=== PATIENT | female | born 1950 | race Caucasian/White ===

== ENCOUNTER 2017-05-13 20:10 | Inpatient (IN) | payer OTHER ==
[~2017-05-13] VITALS: Ht 154.9 cm; Wt 74.2 kg
[~2017-05-13 20:10] MED LIST: ADULT LOW DOSE81 M1 PO; ALEVE220 MG PO; AMOXICILLIN500 MG PO; ASPIR 8181 MG PO; ASPIR-LOW81 MG PO; CHEWABLE MULTI1 EACH PO; CLONIDINE HCL0.1 MG PO; COMBIVENT RESPIM4 GM IH; DAILY VITAMIN1 EAC8 PO; FLUOXETINE HCL20 M1 PO; GLUCOPHAGE500 MG PO; GLUMETZA500 M1 PO; LEVAQUIN500 MG PO; LEVOTHROID25 MCG PO; LEVOTHYROXINE75 MCG PO; LIPITOR20 MG PO; MULTIVITAMIN W1 EAC3 PO; PREDNISONE10 M1 PO; PREDNISONE10 MG PO; PREDNISONE20 MG PO; PREVACID SOLUTA30 MG PO; PRILOSEC40 MG PO; PRINIVIL10 MG PO; PROZAC20 MG PO; SPIRIVA1 INHALATI IH; SYMBICORT60 INHALA1 IH; SYNTHROID25 MCG PO; SYNTHROID75 MCG PO; VENTOLIN HFA18 GM IH; VITAMIN B-12500 MC3 PO; ZETIA10 MG PO; ZOCOR40 MG PO
[2017-05-13 20:58] LABS: HEMATOCRIT 48.8 % (36.0-46.0); MCH 28.6 PG (29.0-34.0); MCHC 31.4 G/DL (30.0-36.0); MCV 91.2 FL (83-99); MEAN PLAT.VOLUME 9.2 uM^3 (9.5-12.4); PLATELET COUNT 318 K/uL (156-360); RBC DIS.WIDTH-CV 14.4 % (11.8-14.6); RBC DIS.WIDTH-SD 47.8 % (39-53); RED BLOOD COUNT 5.35 M/uL (3.80-5.20); WHITE BLOOD COUNT 23.4 K/uL (4.1-10.2)
[2017-05-13 21:08] LABS: CHLORIDE 106 mEq/L (99-109); POTASSIUM 4.6 mEq/L (3.7-5.4); SODIUM 143 mEq/L (136-147)
[2017-05-13 21:10] LABS: GLUCOSE 99 mg/dL (70-99)
[2017-05-13 21:12] LABS: ANION GAP 13 MEQ/L (2-14)
[2017-05-13 21:14] LABS: GFR ESTIMATE (CALCULATED) > 59 mL/min/
[2017-05-13 21:15] LABS: UREA NITROGEN (BUN) 16 mg/dL (9-23)
[2017-05-13 21:23] LABS: TROP-I INTERPRETATION NEGATIVE; TROPONIN-I 0.03 ng/mL (0.0-0.30)
[2017-05-13] MEDS ORDERED: DULERA 100 MCG/13 GM PO (21:33)
[2017-05-13] MEDS ORDERED: BAYER CHEWABLE81 MG PO (21:35)
[2017-05-13] MEDS ORDERED: DULERA 100 MCG/13 GM IH (21:43)
[2017-05-13] MEDS ORDERED: METFORMIN HCL500 M1 PO (21:43)
[2017-05-13] MEDS ORDERED: OMEPRAZOLE40 M1 PO (22:04)
[2017-05-13] MEDS ORDERED: PREDNISONE10 MG PO (22:05)
[2017-05-13] MEDS ORDERED: DAILY VITAMIN1 EAC4 PO (22:06)
[2017-05-13] MEDS ORDERED: BROVANA15 MCG/2 M IH (22:09)
[2017-05-14] VITALS (7 sets, daily range): BP systolic 140–188; BP diastolic 71–87
[2017-05-14 00:06] LABS: HDL CHOLESTEROL 63 MG/DL (Desirable>=50); LDL CHOLESTEROL 74 mg/dL (Desirable<100); NON-HDL CHOLESTEROL 114 mg/dL (Desirable<160); TOTAL CHOLESTEROL 177 mg/dL (Desirable<200); TRIGLYCERIDES 198 MG/DL (Normal: <150)
[2017-05-14 06:05] LABS: EOSINOPHIL (%) 0 % (0-5); IMMATURE GRANULOCYTE (%) 0.9 % (0.0-0.7); IMMATURE GRANULOCYTE COUNT 0.2 K/uL; LYMPHOCYTE COUNT 1.3 K/uL (1.0-2.8); MCH 28.3 PG (29.0-34.0); MCHC 31.1 G/DL (30.0-36.0); MCV 91.1 FL (83-99); MEAN PLAT.VOLUME 9.4 uM^3 (9.5-12.4); MONOCYTE (%) 1.7 % (3-12); MONOCYTE COUNT 0.3 K/uL (0-0.8); NEUTROPHIL (%) 90.5 % (45-76); PLATELET COUNT 305 K/uL (156-360); RBC DIS.WIDTH-CV 14.5 % (11.8-14.6); RBC DIS.WIDTH-SD 48.3 % (39-53); RED BLOOD COUNT 5.16 M/uL (3.80-5.20); WHITE BLOOD COUNT 19.9 K/uL (4.1-10.2)
[2017-05-14 06:22] LABS: ANION GAP 10 MEQ/L (2-14); CHLORIDE 104 MEQ/L (99-109); GFR ESTIMATE (CALCULATED) > 59 mL/min/; POTASSIUM 4.5 MEQ/L (3.7-5.4); SAMPLE HEMOLYSIS CHECK 0; SAMPLE ICTERIC CHECK 0; SAMPLE LIPEMIA CHECK 0; SODIUM 139 MEQ/L (136-147); UREA NITROGEN (BUN) 13 mg/dL (9-23)
[2017-05-14 06:25] LABS: GLUCOSE 154 mg/dL (70-99)
[2017-05-14 07:43] LABS: Estimated Average Glucose 137 mg/dL (70-123); HEMOGLOBIN A1c (GLYCOHEMOGLOB) 6.4 % HGB (Below 5.7)
[2017-05-14 17:24] LABS: POINT-OF-CARE METER ID UU14188625
[2017-05-14 21:14] LABS: POINT-OF-CARE METER ID UU13113717
[2017-05-14 21:50] LABS: ADD MIUA? NO; BILIRUBIN NEGATIVE; BLOOD NEGATIVE; COLOR YELLOW ((YELLOW)); GLUCOSE (STRIP) NEGATIVE; KETONES NEGATIVE; LEUKOCYTES NEGATIVE; NITRITE NEGATIVE; PROTEIN (STRIP) NEGATIVE; SPECIFIC GRAVITY 1.009 (1.000-1.030); UCUL ADDED? NO; UROBILINOGEN 0.2 MG/DL (0.2-1.0)
[2017-05-15 04:10] VITALS: BP 188/80
[2017-05-15 05:53] LABS: EOSINOPHIL (%) 0 % (0-5); HEMATOCRIT 47.7 % (36.0-46.0); IMMATURE GRANULOCYTE (%) 0.7 % (0.0-0.7); IMMATURE GRANULOCYTE COUNT 0.1 K/uL; INSTRUMENT ABS NEUTROPHIL CT 17.9 K/uL; MCH 29.4 PG (29.0-34.0); MCHC 32.3 G/DL (30.0-36.0); MEAN PLAT.VOLUME 9.5 uM^3 (9.5-12.4); MONOCYTE (%) 0.8 % (3-12); MONOCYTE COUNT 0.2 K/uL (0-0.8); NEUTROPHIL (%) 92.9 % (45-76); NEUTROPHIL COUNT 17.9 K/uL (1.8-6.4); PLATELET COUNT 306 K/uL (156-360); RBC DIS.WIDTH-CV 14.8 % (11.8-14.6); RBC DIS.WIDTH-SD 48.9 % (39-53); RED BLOOD COUNT 5.24 M/uL (3.80-5.20); WHITE BLOOD COUNT 19.3 K/uL (4.1-10.2)
[2017-05-15 06:55] LABS: ANION GAP 8 MEQ/L (2-14); CHLORIDE 103 MEQ/L (99-109); GFR ESTIMATE (CALCULATED) > 59 mL/min/; GLUCOSE 150 mg/dL (70-99); POTASSIUM 4.6 MEQ/L (3.7-5.4); SAMPLE HEMOLYSIS CHECK 0; SAMPLE ICTERIC CHECK 0; SAMPLE LIPEMIA CHECK 0; SODIUM 139 MEQ/L (136-147); UREA NITROGEN (BUN) 16 mg/dL (9-23)
[2017-05-15 07:48] LABS: POINT-OF-CARE METER ID UU14188625
[2017-05-15 08:19] VITALS: BP 164/79
[2017-05-15 12:01] VITALS: BP 146/99
[2017-05-15 12:01] LABS: POINT-OF-CARE METER ID UU14188625
[2017-05-15 17:03] LABS: POINT-OF-CARE METER ID UU14188625
[2017-05-15 18:04] VITALS: BP 162/64
[2017-05-15] MEDS ORDERED: CLOPIDOGREL75 MG PO (20:14)
[2017-05-15] MEDS ORDERED: METOPROLOL SUCC50 MG PO (20:15)
[2017-05-15] MEDS ORDERED: PRINIVIL10 MG PO (20:15)
[2017-05-15] MEDS ORDERED: LEXAPRO10 MG PO (20:18)
[2017-05-15 21:11] LABS: POINT-OF-CARE METER ID UU14174225
[2017-05-15 23:42] VITALS: BP 162/74; BP 185/82
[2017-05-16 07:35] VITALS: BP 162/76
[2017-05-16 07:38] LABS: POINT-OF-CARE METER ID UU13113717
[2017-05-16 11:36] LABS: POINT-OF-CARE METER ID UU13113717
[2017-05-16 15:59] VITALS: BP 159/68
[2017-05-16 17:10] LABS: POINT-OF-CARE METER ID UU13113717
== END 2017-05-16 21:00 | disposition home or self-care (01) | DRG 65 ==
LOC: EME 20:10 → 5SOUTH 22:35 → EDOF 22:35 → 5SOUTH 23:43
PROVIDERS: Emergency Medicine; Family Medicine Sports Medicine
DX: I63.9 Cerebral infarction, unspecified (principal); H53.9 Unspecified visual disturbance; J44.0 Chronic obstructive pulmonary disease with (acute) lower respiratory infection; J20.9 Acute bronchitis, unspecified; J44.1 Chronic obstructive pulmonary disease with (acute) exacerbation; E03.9 Hypothyroidism, unspecified; E11.9 Type 2 diabetes mellitus without complications; E78.5 Hyperlipidemia, unspecified; I10 Essential (primary) hypertension; I25.10 Atherosclerotic heart disease of native coronary artery without angina pectoris; J84.10 Pulmonary fibrosis, unspecified; K21.9 Gastro-esophageal reflux disease without esophagitis; F32.9 Major depressive disorder, single episode, unspecified; F41.9 Anxiety disorder, unspecified; E66.9 Obesity, unspecified; Z86.73 Personal history of transient ischemic attack (TIA), and cerebral infarction without residual deficits; Z68.30 Body mass index [BMI] 30.0-30.9, adult; Z87.891 Personal history of nicotine dependence; Z99.81 Dependence on supplemental oxygen; Z79.82 Long term (current) use of aspirin
CPT/HCPCS: 70450; 70553; 71010; 78582; 80048; 80061; 81003; 82948; 83036; 84443; 84484; 85025; 85027; 93005; 93306; 93880; 93970; 94640; 94640 76; 94760; 94799; 99202; A9540; A9567; J0360; J1200; J1650; J2765; J2930; J7030; J7512

== ENCOUNTER 2017-05-17 12:48 | Emergency (ER) | payer OTHER ==
[~2017-05-17] VITALS: Ht 154.9 cm; Wt 71.8 kg
[~2017-05-17 12:48] MED LIST changes: +BAYER CHEWABLE81 MG PO; +BROVANA15 MCG/2 M IH; +CLOPIDOGREL75 MG PO; +DAILY VITAMIN1 EAC4 PO; +DULERA 100 MCG/13 GM IH; +DULERA 100 MCG/13 GM PO; +LEXAPRO10 MG PO; +METFORMIN HCL500 M1 PO; +METOPROLOL SUCC50 MG PO; +OMEPRAZOLE40 M1 PO
[2017-05-17 13:11] LABS: HEMATOCRIT 49.8 % (36.0-46.0); MCHC 31.7 G/DL (30.0-36.0); MCV 91.4 FL (83-99); MEAN PLAT.VOLUME 9.4 uM^3 (9.5-12.4); PLATELET COUNT 294 K/uL (156-360); RBC DIS.WIDTH-CV 14.6 % (11.8-14.6); RBC DIS.WIDTH-SD 48.1 % (39-53); RED BLOOD COUNT 5.45 M/uL (3.80-5.20); WHITE BLOOD COUNT 26.1 K/uL (4.1-10.2)
[2017-05-17 13:16] LABS: INTER. NORMALIZED RATIO 1.1; PROTHROMBIN TIME 11.9 SEC (10.2-12.9)
[2017-05-17 13:19] LABS: CHLORIDE 101 mEq/L (99-109); POTASSIUM 3.8 mEq/L (3.7-5.4); PTT 25.7 SEC (25-37); SODIUM 142 mEq/L (136-147)
[2017-05-17 13:22] LABS: ANION GAP 15 MEQ/L (2-14)
[2017-05-17 13:24] LABS: GFR ESTIMATE (CALCULATED) > 59 mL/min/
[2017-05-17 13:25] LABS: UREA NITROGEN (BUN) 23 mg/dL (9-23)
[2017-05-17 13:31] LABS: TROP-I INTERPRETATION NEGATIVE; TROPONIN-I 0.01 ng/mL (0.0-0.30)
[2017-05-17 13:32] LABS: GLUCOSE 101 mg/dL (70-99)
[2017-05-17 15:08] VITALS: BP 132/67
== END 2017-05-17 15:12 | disposition home or self-care (01) ==
LOC: EME 12:48
PROVIDERS: Physician Assistant
DX: R51 Headache (principal); V49.40XA Driver injured in collision with unspecified motor vehicles in traffic accident, initial encounter; Z86.73 Personal history of transient ischemic attack (TIA), and cerebral infarction without residual deficits; K21.9 Gastro-esophageal reflux disease without esophagitis; I10 Essential (primary) hypertension; J45.909 Unspecified asthma, uncomplicated; E11.9 Type 2 diabetes mellitus without complications; Z87.891 Personal history of nicotine dependence; Z79.82 Long term (current) use of aspirin; Z79.84 Long term (current) use of oral hypoglycemic drugs
CPT/HCPCS: 70450; 71020; 80048; 84484; 85027; 85610; 85730; 93005; 99281; 99284; J1100

== ENCOUNTER 2017-06-25 17:31 | Inpatient (IN) | payer OTHER ==
[~2017-06-25] VITALS: Ht 165.1 cm; Wt 77.0 kg
[2017-06-25 18:14] LABS: HEMATOCRIT 44.8 % (36.0-46.0); MCH 29.7 PG (29.0-34.0); MCHC 32.6 G/DL (30.0-36.0); MCV 91.1 FL (83-99); MEAN PLAT.VOLUME 9.8 uM^3 (9.5-12.4); PLATELET COUNT 274 K/uL (156-360); RBC DIS.WIDTH-SD 49.6 % (39-53); RED BLOOD COUNT 4.92 M/uL (3.80-5.20); WHITE BLOOD COUNT 14.4 K/uL (4.1-10.2)
[2017-06-25 18:28] LABS: INTER. NORMALIZED RATIO 1.1; PROTHROMBIN TIME 12.4 SEC (10.2-12.9)
[2017-06-25 18:31] LABS: PTT 27.8 SEC (25-37)
[2017-06-25 18:39] LABS: TROP-I INTERPRETATION NEGATIVE; TROPONIN-I 0.08 ng/mL (0.0-0.30)
[2017-06-25 18:44] LABS: CHLORIDE 105 mEq/L (99-109); POTASSIUM 3.9 mEq/L (3.7-5.4); SODIUM 143 mEq/L (136-147)
[2017-06-25 18:46] LABS: GLUCOSE 102 mg/dL (70-99)
[2017-06-25 18:47] LABS: ANION GAP 12 MEQ/L (2-14)
[2017-06-25 18:50] LABS: GFR ESTIMATE (CALCULATED) > 59 mL/min/; UREA NITROGEN (BUN) 13 mg/dL (9-23)
[2017-06-25 19:42] LABS: ADD MIUA? YES; BILIRUBIN NEGATIVE; BLOOD NEGATIVE; COLOR YELLOW ((YELLOW)); GLUCOSE (STRIP) NEGATIVE; KETONES NEGATIVE; LEUKOCYTES NEGATIVE; NITRITE NEGATIVE; PROTEIN (STRIP) 100
[2017-06-25 19:58] LABS: BACTERIA NONE SEEN /HPF; EPITHELIAL CELLS RARE /HPF; HYALINE CASTS 0-5 /LPF; MUCUS TRACE /LPF; RED BLOOD CELLS 0-5 /HPF (0-5); UCUL ADDED? NO; WHITE BLOOD CELLS 0-5 /HPF (0-5)
[2017-06-25] MEDS ORDERED: VENTOLIN HFA18 GM IH (21:13)
[2017-06-25] MEDS ORDERED: CLARITIN,ALAVAR10 MG PO (21:14)
[2017-06-25] MEDS ORDERED: ATIVAN0.5 MG PO (21:15)
[2017-06-25] MEDS ORDERED: ADVIL (21:17)
[2017-06-25 22:42] VITALS: BP 190/95
[2017-06-25 23:09] LABS: POINT-OF-CARE METER ID UU13113717
[2017-06-26 03:56] VITALS: BP 142/76
[2017-06-26 06:55] LABS: HDL CHOLESTEROL 41 MG/DL (Desirable>=50); LDL CHOLESTEROL 56 mg/dL (Desirable<100); NON-HDL CHOLESTEROL 87 mg/dL (Desirable<160); TOTAL CHOLESTEROL 128 mg/dL (Desirable<200); TRIGLYCERIDES 156 MG/DL (Normal: <150)
[2017-06-26 07:48] LABS: Estimated Average Glucose 126 mg/dL (70-123)
[2017-06-26 07:56] VITALS: BP 151/73
[2017-06-26 11:33] VITALS: BP 156/88
[2017-06-26 12:05] LABS: POINT-OF-CARE METER ID UU14188625
[2017-06-26 16:08] VITALS: BP 169/82
[2017-06-26 19:53] VITALS: BP 135/80
[2017-06-26 23:37] VITALS: BP 133/68
[2017-06-27 03:44] VITALS: BP 147/67
[2017-06-27 07:46] VITALS: BP 139/76
[2017-06-27 08:55] LABS: POINT-OF-CARE METER ID UU14174225
[2017-06-27 13:15] LABS: POINT-OF-CARE METER ID UU14174225
[2017-06-27 15:20] VITALS: BP 128/73
[2017-06-27 17:01] LABS: POINT-OF-CARE METER ID UU14174225
[2017-06-27 21:40] LABS: POINT-OF-CARE METER ID UU14174225
[2017-06-28 00:54] VITALS: BP 130/66
[2017-06-28 07:00] LABS: HEMATOCRIT 47.7 % (36.0-46.0); MCH 29.9 PG (29.0-34.0); MCHC 32.5 G/DL (30.0-36.0); MCV 91.9 FL (83-99); MEAN PLAT.VOLUME 9.6 uM^3 (9.5-12.4); PLATELET COUNT 278 K/uL (156-360); RBC DIS.WIDTH-CV 14.7 % (11.8-14.6); RED BLOOD COUNT 5.19 M/uL (3.80-5.20)
[2017-06-28 07:23] LABS: ANION GAP 9 MEQ/L (2-14); CHLORIDE 105 MEQ/L (99-109); GFR ESTIMATE (CALCULATED) > 59 mL/min/; GLUCOSE 136 mg/dL (70-99); POTASSIUM 4.7 MEQ/L (3.7-5.4); SAMPLE HEMOLYSIS CHECK 0; SAMPLE ICTERIC CHECK 0; SAMPLE LIPEMIA CHECK 0; SODIUM 141 MEQ/L (136-147); UREA NITROGEN (BUN) 14 mg/dL (9-23)
[2017-06-28 08:05] VITALS: BP 122/68
[2017-06-28 08:37] LABS: POINT-OF-CARE METER ID UU14174225
[2017-06-28 12:18] LABS: POINT-OF-CARE METER ID UU13113717
[2017-06-28 15:49] VITALS: BP 128/63
[2017-06-28 17:29] LABS: POINT-OF-CARE METER ID UU14174225
[2017-06-28 21:21] LABS: POINT-OF-CARE METER ID UU13113717
[2017-06-28 23:50] VITALS: BP 131/60
[2017-06-29 07:39] VITALS: BP 125/66
[2017-06-29 11:15] LABS: POINT-OF-CARE METER ID UU14174225
[2017-06-29 15:20] VITALS: BP 146/76
[2017-06-29 16:24] LABS: POINT-OF-CARE METER ID UU14174225
[2017-06-29 21:55] LABS: POINT-OF-CARE METER ID UU13113717
[2017-06-29 23:55] VITALS: BP 119/57
[2017-06-30 06:10] LABS: HEMATOCRIT 47.2 % (36.0-46.0); MCH 28.7 PG (29.0-34.0); MCHC 31.4 G/DL (30.0-36.0); MCV 91.7 FL (83-99); MEAN PLAT.VOLUME 9.9 uM^3 (9.5-12.4); PLATELET COUNT 324 K/uL (156-360); RBC DIS.WIDTH-CV 14.9 % (11.8-14.6); RBC DIS.WIDTH-SD 50.8 % (39-53); RED BLOOD COUNT 5.15 M/uL (3.80-5.20); WHITE BLOOD COUNT 14.4 K/uL (4.1-10.2)
[2017-06-30 06:40] LABS: ANION GAP 10 MEQ/L (2-14); CHLORIDE 104 MEQ/L (99-109); GFR ESTIMATE (CALCULATED) > 59 mL/min/; GLUCOSE 119 mg/dL (70-99); POTASSIUM 4.4 MEQ/L (3.7-5.4); SAMPLE HEMOLYSIS CHECK 0; SAMPLE ICTERIC CHECK 0; SAMPLE LIPEMIA CHECK 0; SODIUM 141 MEQ/L (136-147); UREA NITROGEN (BUN) 17 mg/dL (9-23)
[2017-06-30 07:41] VITALS: BP 144/69
[2017-06-30 11:15] LABS: POINT-OF-CARE METER ID UU14174225
[2017-06-30 15:15] VITALS: BP 187/82
[2017-06-30 16:28] LABS: POINT-OF-CARE METER ID UU13113717
[2017-06-30 21:21] LABS: POINT-OF-CARE METER ID UU14174225
[2017-06-30] MEDS ORDERED: CLOPIDOGREL75 MG PO (23:47)
[2017-06-30] MEDS ORDERED: PREDNISONE20 MG PO (23:50)
[2017-06-30] MEDS ORDERED: LOVENOX40 MG/0.4 SC (23:54)
[2017-07-01 07:30] VITALS: BP 141/78
[2017-07-01 07:45] LABS: POINT-OF-CARE METER ID UU13113717
[2017-07-01 12:09] LABS: POINT-OF-CARE METER ID UU13113717
[2017-07-01 15:23] VITALS: BP 128/80
[2017-07-01] MEDS ORDERED: ATORVASTATIN CA40 MG PO (16:07)
[2017-07-01] MEDS ORDERED: AMLODIPINE BESYL5 MG PO (16:07)
[2017-07-01] MEDS ORDERED: LISINOPRIL20 MG PO (16:08)
[2017-07-01] MEDS ORDERED: TYLENOL REGULA325 MG PO (16:08)
[2017-07-01] MEDS ORDERED: PRAMIPEXOLE D0.25 MG PO (16:09)
[2017-07-01] MEDS ORDERED: ADVAIR HFA120 INHALA IH (16:09)
[2017-07-01] MEDS ORDERED: BACTRIM,SEPT1 TABLET PO (16:11)
[2017-07-01] MEDS ORDERED: ONE TOUCH VERI EAC MC (16:12)
[2017-07-01] MEDS ORDERED: ONE TOUCH LANC1 EACH MC (16:13)
[2017-07-01] MEDS ORDERED: ONE TOUCH VERI1 EACH MC (16:13)
== END 2017-07-01 16:44 | disposition home or self-care (01) | DRG 190 ==
LOC: EME 17:31 → 5SOUTH 19:40 → EDOF 19:40 → ENRESERV 19:41 → 5SOUTH 22:09
PROVIDERS: Emergency Medicine; Family Medicine; Internal Medicine
DX: J44.0 Chronic obstructive pulmonary disease with (acute) lower respiratory infection (principal); J18.9 Pneumonia, unspecified organism; J20.9 Acute bronchitis, unspecified; J96.91 Respiratory failure, unspecified with hypoxia; I11.9 Hypertensive heart disease without heart failure; E78.5 Hyperlipidemia, unspecified; R09.02 Hypoxemia; E03.9 Hypothyroidism, unspecified; R41.82 Altered mental status, unspecified; J44.1 Chronic obstructive pulmonary disease with (acute) exacerbation; F41.9 Anxiety disorder, unspecified; E11.9 Type 2 diabetes mellitus without complications; J84.10 Pulmonary fibrosis, unspecified; K21.9 Gastro-esophageal reflux disease without esophagitis; Z79.82 Long term (current) use of aspirin; Z87.891 Personal history of nicotine dependence; Z99.81 Dependence on supplemental oxygen; Z87.01 Personal history of pneumonia (recurrent); Z86.73 Personal history of transient ischemic attack (TIA), and cerebral infarction without residual deficits; Z82.3 Family history of stroke; I70.90 Unspecified atherosclerosis; R91.1 Solitary pulmonary nodule
CPT/HCPCS: 70450; 70551; 71020; 71250; 80048; 80061; 81003; 82948; 83036; 84484; 85027; 85610; 85730; 92507 GN; 92523 GN; 93005; 94640; 94640 76; 94799; 99202; 99281; 99285; J1650; J1815; J7512

== ENCOUNTER 2017-08-15 12:38 | Inpatient (IN) | payer OTHER ==
[~2017-08-15] VITALS: Ht 157.5 cm; Wt 73.5 kg
[~2017-08-15 12:38] MED LIST changes: +ADVAIR HFA120 INHALA IH; +ADVIL; +AMLODIPINE BESYL5 MG PO; +ATIVAN0.5 MG PO; +ATORVASTATIN CA40 MG PO; +BACTRIM,SEPT1 TABLET PO; -BAYER CHEWABLE81 MG PO; +CLARITIN,ALAVAR10 MG PO; +LISINOPRIL20 MG PO; +LO-DOSE ASPIRIN81 M1 PO; +LOVENOX40 MG/0.4 SC; +ONE TOUCH LANC1 EACH MC; +ONE TOUCH VERI EAC MC; +ONE TOUCH VERI1 EACH MC; +PRAMIPEXOLE D0.25 MG PO; +TYLENOL REGULA325 MG PO
[2017-08-15 13:16] LABS: HEMATOCRIT 41.7 % (36.0-46.0); MCH 29.3 PG (29.0-34.0); MCHC 32.4 G/DL (30.0-36.0); MCV 90.7 FL (83-99); MEAN PLAT.VOLUME 9.4 uM^3 (9.5-12.4); PLATELET COUNT 314 K/uL (156-360); RBC DIS.WIDTH-CV 14.6 % (11.8-14.6); RBC DIS.WIDTH-SD 47.9 % (39-53); WHITE BLOOD COUNT 11.1 K/uL (4.1-10.2)
[2017-08-15 13:25] LABS: CHLORIDE 105 mEq/L (99-109); POTASSIUM 3.4 mEq/L (3.7-5.4); SODIUM 143 mEq/L (136-147)
[2017-08-15 13:26] LABS: GLUCOSE 116 mg/dL (70-99)
[2017-08-15 13:28] LABS: ANION GAP 14 MEQ/L (2-14)
[2017-08-15 13:30] LABS: GFR ESTIMATE (CALCULATED) > 59 mL/min/
[2017-08-15 13:31] LABS: UREA NITROGEN (BUN) 9 mg/dL (9-23)
[2017-08-15 13:37] LABS: TROP-I INTERPRETATION NEGATIVE; TROPONIN-I 0.02 ng/mL (0.0-0.30)
[2017-08-15] MEDS ORDERED: PLAVIX75 MG PO (15:28)
[2017-08-15] MEDS ORDERED: LISINOPRIL20 MG PO (15:29)
[2017-08-15] MEDS ORDERED: AMLODIPINE BESYL5 MG PO (15:29)
[2017-08-15] MEDS ORDERED: TYLENOL EXTRA500 MG PO (15:30)
[2017-08-15] MEDS ORDERED: INCRUSE ELLI62.5 MCG IH (15:31)
[2017-08-15] MEDS ORDERED: ACTOPLUS MET1 TABLET PO (15:31)
[2017-08-15] MEDS ORDERED: FLUAD 201745 MCG/0.5 IM (15:31)
[2017-08-15] MEDS ORDERED: PNEUMOVAX 230.5 ML SC (15:31)
[2017-08-15 18:10] VITALS: BP 155/75
[2017-08-15 19:19] VITALS: BP 146/80
[2017-08-15 23:00] VITALS: BP 123/73
[2017-08-16] VITALS (8 sets, daily range): BP systolic 119–152; BP diastolic 57–96
[2017-08-16 06:44] LABS: HEMATOCRIT 39.2 % (36.0-46.0); MCH 30.2 PG (29.0-34.0); MCHC 33.2 G/DL (30.0-36.0); MCV 91.2 FL (83-99); MEAN PLAT.VOLUME 10.2 uM^3 (9.5-12.4); PLATELET COUNT 311 K/uL (156-360); RBC DIS.WIDTH-CV 14.6 % (11.8-14.6); RBC DIS.WIDTH-SD 48.1 % (39-53); WHITE BLOOD COUNT 13.3 K/uL (4.1-10.2)
[2017-08-16 07:09] LABS: ANION GAP 16 MEQ/L (2-14); CHLORIDE 103 MEQ/L (99-109); GFR ESTIMATE (CALCULATED) > 59 mL/min/; POTASSIUM 3.9 MEQ/L (3.7-5.4); SAMPLE HEMOLYSIS CHECK 0; SAMPLE ICTERIC CHECK 0; SAMPLE LIPEMIA CHECK 0; SODIUM 140 MEQ/L (136-147); UREA NITROGEN (BUN) 11 mg/dL (9-23)
[2017-08-16 07:15] LABS: GLUCOSE 183 mg/dL (70-99)
[2017-08-17 02:41] VITALS: BP 119/60
[2017-08-17 08:16] VITALS: BP 142/71
[2017-08-17 10:32] VITALS: BP 137/66
[2017-08-17 16:29] VITALS: BP 137/65
[2017-08-17 19:12] VITALS: BP 136/71
[2017-08-17 22:58] VITALS: BP 136/63
[2017-08-18 02:58] VITALS: BP 140/64
[2017-08-18 07:28] VITALS: BP 149/87
[2017-08-18 11:16] VITALS: BP 176/2; BP 176/72
[2017-08-18 16:15] VITALS: BP 127/64
[2017-08-18 19:32] VITALS: BP 152/74
[2017-08-18 23:41] VITALS: BP 135/62
[2017-08-19 03:36] VITALS: BP 158/74
[2017-08-19 07:52] VITALS: BP 182/75
[2017-08-19 11:15] VITALS: BP 149/82
[2017-08-19 17:42] VITALS: BP 161/77
[2017-08-19 19:33] VITALS: BP 163/76
[2017-08-19 23:57] VITALS: BP 144/67
[2017-08-20 04:23] VITALS: BP 148/70
[2017-08-20 07:34] VITALS: BP 156/78
[2017-08-20 08:30] VITALS: BP 135/64
[2017-08-20 11:18] VITALS: BP 147/70
[2017-08-20 12:06] VITALS: BP 133/62
[2017-08-20 20:13] VITALS: BP 138/70
[2017-08-21 00:04] VITALS: BP 119/70
[2017-08-21 04:06] VITALS: BP 173/81
[2017-08-21 04:11] VITALS: BP 158/82
[2017-08-21 10:45] VITALS: BP 154/72
[2017-08-21 15:49] VITALS: BP 133/63
[2017-08-21 19:41] VITALS: BP 131/69
[2017-08-22] VITALS (7 sets, daily range): BP systolic 135–172; BP diastolic 65–80
[2017-08-23] VITALS (7 sets, daily range): BP systolic 124–176; BP diastolic 65–82
[2017-08-23 06:02] LABS: BASOPHIL COUNT 0.1 K/uL (0-0.1); EOSINOPHIL (%) 0.1 % (0-5); HEMATOCRIT 41.3 % (36.0-46.0); IMMATURE GRANULOCYTE (%) 3.5 % (0.0-0.7); IMMATURE GRANULOCYTE COUNT 0.7 K/uL; INSTRUMENT ABS NEUTROPHIL CT 15.4 K/uL; LYMPHOCYTE COUNT 2.1 K/uL (1.0-2.8); MCH 30.2 PG (29.0-34.0); MCHC 32.9 G/DL (30.0-36.0); MCV 91.8 FL (83-99); MEAN PLAT.VOLUME 10.2 uM^3 (9.5-12.4); MONOCYTE (%) 5.5 % (3-12); MONOCYTE COUNT 1.1 K/uL (0-0.8); NEUTROPHIL (%) 79.9 % (45-76); NEUTROPHIL COUNT 15.4 K/uL (1.8-6.4); PLATELET COUNT 298 K/uL (156-360); RBC DIS.WIDTH-CV 14.3 % (11.8-14.6); RBC DIS.WIDTH-SD 48.5 % (39-53); WHITE BLOOD COUNT 19.2 K/uL (4.1-10.2)
[2017-08-23 06:27] LABS: ANION GAP 9 MEQ/L (2-14); CHLORIDE 101 MEQ/L (99-109); GFR ESTIMATE (CALCULATED) > 59 mL/min/; GLUCOSE 111 mg/dL (70-99); POTASSIUM 4.3 MEQ/L (3.7-5.4); SAMPLE HEMOLYSIS CHECK 0; SAMPLE ICTERIC CHECK 0; SAMPLE LIPEMIA CHECK 0; SODIUM 139 MEQ/L (136-147)
[2017-08-23 06:31] LABS: UREA NITROGEN (BUN) 25 mg/dL (9-23)
[2017-08-23 09:57] LABS: TROP-I INTERPRETATION NEGATIVE; TROPONIN-I < 0.01 ng/mL (0.0-0.30)
[2017-08-23 17:04] LABS: TROP-I INTERPRETATION NEGATIVE; TROPONIN-I 0.01 ng/mL (0.0-0.30)
[2017-08-24 00:39] LABS: TROP-I INTERPRETATION NEGATIVE; TROPONIN-I 0.02 ng/mL (0.0-0.30)
[2017-08-24 07:15] VITALS: BP 178/86
[2017-08-24 11:53] VITALS: BP 150/71
[2017-08-24 16:20] VITALS: BP 118/61
[2017-08-24] MEDS ORDERED: DUONEB 2.5-0.5 M3 ML AEROSOL (19:01)
[2017-08-24] MEDS ORDERED: MAG-AL PLUS SUS30 ML PO (19:03)
[2017-08-24] MEDS ORDERED: PREDNISONE20 MG PO (19:03)
[2017-08-24] MEDS ORDERED: NEO-SYNEPHRINE-15 M1 BOTH NARES (19:03)
[2017-08-24 19:51] VITALS: BP 161/74
== END 2017-08-24 20:35 | disposition short-term general hospital (02) | DRG 190 ==
LOC: EME 12:38 → 5EAST 16:29 → EDOF 16:29 → ENRESERV 16:43 → 5EAST 17:49
PROVIDERS: Emergency Medicine; Family Medicine; Internal Medicine Pulmonary Disease
DX: J44.1 Chronic obstructive pulmonary disease with (acute) exacerbation (principal); J96.21 Acute and chronic respiratory failure with hypoxia; J44.0 Chronic obstructive pulmonary disease with (acute) lower respiratory infection; J20.9 Acute bronchitis, unspecified; R94.31 Abnormal electrocardiogram [ECG] [EKG]; J84.10 Pulmonary fibrosis, unspecified; I11.9 Hypertensive heart disease without heart failure; E78.5 Hyperlipidemia, unspecified; E11.9 Type 2 diabetes mellitus without complications; F33.42 Major depressive disorder, recurrent, in full remission; F41.9 Anxiety disorder, unspecified; K21.9 Gastro-esophageal reflux disease without esophagitis; E03.9 Hypothyroidism, unspecified; E66.9 Obesity, unspecified; Z99.81 Dependence on supplemental oxygen; Z75.1 Person awaiting admission to adequate facility elsewhere; Z68.29 Body mass index [BMI] 29.0-29.9, adult; Z79.02 Long term (current) use of antithrombotics/antiplatelets; Z79.82 Long term (current) use of aspirin; Z79.84 Long term (current) use of oral hypoglycemic drugs; Z86.73 Personal history of transient ischemic attack (TIA), and cerebral infarction without residual deficits; Z87.891 Personal history of nicotine dependence; Z87.01 Personal history of pneumonia (recurrent)
CPT/HCPCS: 71010; 71020; 71250; 78582; 80048; 84484; 85025; 85027; 93005; 94620; 94640; 94640 76; 94760; 94799; 99202; 99281; 99285; A9540; A9567; J0456; J0692; J0696; J2930; J7050; J7512